=== PATIENT | female | born 1995 | race African-American/Black ===

== ENCOUNTER 2018-04-24 12:56 | Emergency (ER) | payer BC ==
[~2018-04-24] VITALS: Ht 167.6 cm; Wt 72.6 kg
[2018-04-24] MEDS: IV NORMAL SALINE 1000 ML BAG IV ONE ×2 (13:51→15:02)
[2018-04-24] MEDS ORDERED: KETOROLAC TROMETHAMINE 30 MG INJ ONE (13:52)
[2018-04-24] MEDS ORDERED: ONDANSETRON 4 MG/2 ML VIAL ONE (13:53)
[2018-04-24] MEDS: KETOROLAC TROMETHAMINE 15 MG INJ IV ONE (13:56)
[2018-04-24] MEDS: ONDANSETRON 4 MG/2 ML VIAL IV ONE (13:56)
[2018-04-24 14:20] LABS: HEMATOCRIT 36.6 % (37-47); HEMOGLOBIN 11.8 G/DL (12.0-16.0); MEAN CORPUSCULAR HEMOGLOBIN 27.7 UUG (27.0-31.0); MEAN CORPUSCULAR HGB CONC 32 g/dL (32.0-37.0); PLATELET COUNT (AUTO) 400 K/UL (150-450); RED BLOOD CELL COUNT(AUTO) 4.26 MIL/UL (4.2-5.4); WHITE BLOOD COUNT (AUTO) 17.1 K/UL (4.0-11.2)
[2018-04-24 14:21] LABS: BASOPHILS # (AUTO) 0.1 K/uL (0.0-8.0); BASOPHILS % (AUTO) 0.4 % (0.0-2.0); LYMPHOCYTES # (AUTO) 0.6 K/UL (0.8-4.8); LYMPHOCYTES % (AUTO) 3.3 % (20.5-51.5); MONOCYTES # (AUTO) 0.4 K/UL (0.1-1.30); MONOCYTES % (AUTO) 2.4 % (0.0-11.0); NEUTROPHILS % (AUTO) 93.9 % (38.5-71.5)
[2018-04-24 14:37] LABS: ALANINE AMINOTRANSFERASE 17 U/L (14-59); ALKALINE PHOSPHATASE 60 U/L (50-136); ASPARTATE AMINOTRANSFERASE 23 U/L (15-37); BILIRUBIN,DIRECT < 0.1 mg/dL (0.0-0.2); BILIRUBIN,TOTAL 0.3 mg/dL (0.2-1.0); CARBON DIOXIDE 25 mmol/L (21-32); CHLORIDE 103 mmol/L (98-107); CREATININE 0.7 mg/dL (0.6-1.3); GLUCOSE 114 mg/dL (74-106); LIPASE 89 U/L (73-393); POTASSIUM 4.1 mmol/L (3.5-5.1); TOTAL PROTEIN, SERUM 8.4 g/dL (6.4-8.2); UREA NITROGEN, BLOOD 10 mg/dL (7-18)
[2018-04-24 14:44] LABS: *BILIRUBIN,URIN NEGATIVE (NEGATIVE); *BLOOD, URINE 2+ (NEGATIVE); *CLARITY,URINE CLOUDY (CLEAR); *COLOR,URINE DARK YELLOW (YELLOW); *KETONES,URINE NEGATIVE (NEGATIVE); *PROTEIN,URINE 1+ (NEGATIVE); *UROBILINOGEN,URINE 0.2 E.U./dl (NORMAL); LEUKOCYTE ESTERASE ,URINE NEGATIVE (NEGATIVE); NITRITE, URINE NEGATIVE (NEGATIVE); PH,URINE 5.5 (5.0-8.0); UGLUCOSE NEGATIVE (NEGATIVE)
[2018-04-24 14:59] LABS: BACTERIA,URINE FEW /HPF (NONE SEEN); SQUAMOUS EPITHELIAL CELL,UR FEW /HPF (NONE SEEN); URINE AMORPHOUS URATE MANY /HPF; WBC,URINE 0-3 /HPF (0-3)
--- NOTE | 2018-04-24 16:06 | NUR ---
Patient discharged to home in stable conditon. Written and verbal after care instructions given. Patient verbalizes understanding of instructions.PT SAYS FEELS BETTER. PAIBN AND NAUSEA SUBSIDED AT THIS TIME. COPY OF STUDIES PROVIDED FOR PT FOR FOLLOW UP.
[2018-04-24 16:08] VITALS: BP 121/81
== END 2018-04-24 16:10 | disposition home or self-care (01) ==
LOC: ER 12:58
DX: R10.84 Generalized abdominal pain (principal); R19.7 Diarrhea, unspecified
CPT/HCPCS: 36415; 80048; 80076; 81001; 83690; 84702; 85025; 96361; 96374; 96375; 99285; J1885; J2405; A4663; J7030